=== PATIENT | female | born 1980 | race Caucasian/White ===

== ENCOUNTER 2020-09-28 19:16 | Emergency (ER) | payer MEDICARE ==
[~2020-09-28] VITALS: Ht 170.2 cm; Wt 86.4 kg
[2020-09-28 19:19] VITALS: BP 163/90; Ht 170.2 cm; Wt 86.4 kg
[2020-09-28] MEDS ORDERED: LEXAPRO20 MG PO (19:21)
[2020-09-28] MEDS ORDERED: LITHIUM CARBON300 M3 PO (19:21)
[2020-09-28] MEDS ORDERED: GEODON40 MG PO (19:21)
[2020-09-28] MEDS ORDERED: TRAZODONE HCL150 MG PO (19:21)
== END 2020-09-28 22:38 | disposition left against medical advice (07) ==
LOC: D.ER 19:16
DX: R46.89 Other symptoms and signs involving appearance and behavior (principal)